=== PATIENT | female | born 1995 ===

== ENCOUNTER 2022-12-23 06:02 | Inpatient (IN) | payer OTHER ==
[~2022-12-23] VITALS: Ht 165.1 cm; Wt 100.2 kg
[2022-12-23] MEDS ORDERED: PRENATAL + DHA1 EAC1 PO (07:48)
== END 2022-12-25 13:49 | disposition home or self-care (01) | DRG 805 ==
LOC: OB/GYN 06:02 → LDR 06:02 → OB/GYN 14:58
PROVIDERS: ADMIT Obstetrics & Gynecology; ATTEND Obstetrics & Gynecology
PROC: 10E0XZZ Delivery of Products of Conception, External Approach (ICD-10-PCS; principal; 2022-12-23)
PROC: 0KQM0ZZ Repair Perineum Muscle, Open Approach (ICD-10-PCS; 2022-12-23)
PROC: 4A1HXCZ Monitoring of Products of Conception, Cardiac Rate, External Approach (ICD-10-PCS; 2022-12-23)
DX: O70.1 Second degree perineal laceration during delivery (principal); O75.3 Other infection during labor; Z37.0 Single live birth; N39.0 Urinary tract infection, site not specified; Z3A.40 40 weeks gestation of pregnancy; Z20.822 Contact with and (suspected) exposure to COVID-19